=== PATIENT | female | born 1990 | race American Indian/Alaskan Native ===

== ENCOUNTER 2017-05-07 04:52 | Emergency (ER) | payer MEDICAID ==
[2017-05-07 04:59] VITALS: BP 110/64
[2017-05-07] MEDS ORDERED: Sulfamethoxazole/Trimethoprim 800-160 MG Tab PO ONE (05:10)
[2017-05-07] MEDS ORDERED: Phenazopyridine 95 MG Tab PO ONE (05:10)
--- NOTE | 2017-05-07 05:17 | EDM.PDOC ---
ED HPI GENERAL MEDICAL PROBLEM - General Chief Complaint: Genitourinary Problem Stated Complaint: POSSIBLE UTI Time Seen by Provider: 05/07/17 05:13 Source of Information: Reports: Patient History Limitations: Reports: No Limitations - History of Present Illness INITIAL COMMENTS - FREE TEXT/NARRATIVE: onset Sx last week tried drinking cranberry juice but not getting better. Left Flank Pain Score (Numeric/FACES): 6 - Related Data Allergies Allergy/AdvReac Type Severity Reaction Status Date / Time benzoyl peroxide Allergy Swelling Verified 05/07/17 05:01 Home Meds: Home Meds . 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 D/C from retained placenta. Musculoskeletal History: Reports: None Neurological History: Reports: None Psychiatric History: Reports: None Endocrine/Metabolic History: Reports: None Hematologic History: Reports: None Immunologic History: Reports: None Oncologic (Cancer) History: Reports: None Dermatologic History: Reports: None - Infectious Disease History Infectious Disease History: Reports: Chicken Pox - Past Surgical History GI Surgical History: Reports: Cholecystectomy Female Surgical History: Reports: Tubal Ligation Social & Family History - Family History Family Medical History: Noncontributory HEENT: Reports: None Cardiac: Reports: None Respiratory: Reports: None GI: Reports: None - Tobacco Use Smoking Status *Q: Current Every Day Smoker Years of Tobacco use: 10 Packs/Tins Daily: 0.5 Used Tobacco, but Quit: No Second Hand Smoke Exposure: Yes - Recreational Drug Use Recreational Drug Use: No ED ROS GENERAL - Review of Systems Review Of Systems: ROS reveals no pertinent complaints other than HPI. ED EXAM, RENAL/ - Physical Exam Exam: See Below Exam Limited By: No Limitations General Appearance: Alert, WD/WN, Mild Distress, Other ([place]) Ears: Hearing Grossly Normal Throat/Mouth: Normal Voice, No Airway Compromise Head: Atraumatic Neck: Non-Tender, Full Range of Motion Respiratory/Chest: No Respiratory Distress Cardiovascular: Regular Rate, Rhythm GI/Abdominal: Tender, Other (suprapubic). No: Distended, Guarding, Rigid, Rebound Back Exam: No: CVA Tenderness (L), CVA Tenderness (R) Neurological: Alert, Oriented, Normal Cognition, Normal Gait, No Motor/Sensory Deficits Psychiatric: Tearful Skin Exam: Warm, Dry, Normal Color Lymphatic: No Adenopathy Course - Vital Signs Last Recorded V/S: Last Vital Signs Temp 37.1 C 05/07/17 04:54 Pulse 117 H 05/07/17 04:54 Resp 18 05/07/17 04:54 BP 110/64 05/07/17 04:54 Pulse Ox 97 05/07/17 04:54 - Orders/Labs/Meds Labs: Laboratory Tests 05/07/17 05/07/17 Range/Units 04:57 04:57 Urine Color Yellow (YELLOW) Urine Appearance Slightly cloudy (CLEAR) Urine pH 5.5 (5.0-9.0) Ur Specific [place] 1.025 (1.005-1.030) Urine Protein 30 H (NEGATIVE) Urine Glucose (UA) Negative (NEGATIVE) Urine Ketones Trace H (NEGATIVE) Urine Occult Blood Small H (NEGATIVE) Urine Nitrite Positive H (NEGATIVE) Urine Bilirubin Small H (NEGATIVE) Urine Urobilinogen 0.2 (0.2-1.0) mg/dL Ur Leukocyte Esterase Small H (NEGATIVE) Urine RBC 5-10 H /HPF Urine WBC Semi-packed H (0-5/HPF) /HPF Ur Epithelial Cells Moderate H /HPF Urine Bacteria Many H (0-FEW/HPF) /HPF Urine Mucus Many H /LPF Urine Opiates Screen Negative (NEGATIVE) Ur Oxycodone Screen Negative (NEGATIVE) Urine Methadone Screen Negative (NEGATIVE) Ur Barbiturates Screen Negative (NEGATIVE) U Tricyclic Antidepress Negative (NEGATIVE) Ur Phencyclidine Scrn Negative (NEGATIVE) Ur Amphetamine Screen Negative (NEGATIVE) U Methamphetamines Scrn Negative (NEGATIVE) Urine MDMA Screen Negative (NEGATIVE) U Benzodiazepines Scrn Negative (NEGATIVE) Urine Cocaine Screen Negative (NEGATIVE) U Marijuana (THC) Screen Negative (NEGATIVE) Meds: Medications Discontinued Medications Generic Name Dose Route Start Last Admin Trade Name Freq PRN Reason Stop Dose Admin Phenazopyridine HCl 95 mg 05/07/17 05:10 Urinary Pain Relief PO 05/07/17 05:11 ONETIME ONE Trimethoprim/Sulfamethoxazole 1 tab 05/07/17 05:10 Septra Ds PO 05/07/17 05:11 ONETIME ONE Departure - Departure Time of Disposition: 05:14 Disposition: Home, Self-Care 01 Condition: Good Clinical Impression: UTI, Urinary tract infectious disease - Discharge Information Instructions: Urinary Tract Infection, Adult, [id number] Forms: ED Department Discharge Additional Instructions: 1) rest as much as possible 2) drink lots of liquids 3) take tylenol or motrin for fever or discomfort 4) follow up at clinic or recheck if feels worse rx given; bactrim DS bid x 20 pyridium 100mg tid prn x 12
== END 2017-05-07 05:18 | disposition home or self-care (01) ==
LOC: DL.ED 04:52
DX: N39.0 Urinary tract infection, site not specified (principal); J45.909 Unspecified asthma, uncomplicated; F17.210 Nicotine dependence, cigarettes, uncomplicated; Z90.49 Acquired absence of other specified parts of digestive tract; Z98.51 Tubal ligation status; Z88.8 Allergy status to other drugs, medicaments and biological substances
CPT/HCPCS: 80305; 81001; 99284; A9270

== ENCOUNTER 2017-05-08 17:14 | Emergency (ER) | payer MEDICAID ==
[2017-05-08] MEDS ORDERED: Ketorolac 30 MG/ML SDV IVPUSH ONE (17:57)
[2017-05-08] MEDS ORDERED: Sodium Chloride 0.9% 1,000 ML IV ONE (17:57)
[2017-05-08] MEDS ORDERED: Sodium Chloride 0.9% 10 ML Syringe FLUSH PRN (17:57)
[2017-05-08] MEDS ORDERED: Promethazine 25 MG Tab PO ONE (17:58)
[2017-05-08] MEDS ORDERED: cefTRIAXone 2 GM in Sodium Chloride 0.9% 100 ML IV ONE (17:59)
[2017-05-08 18:35] LABS: CHLORIDE,CL 105 mmol/L (101-111); SODIUM,NA 138 mmol/L (135-145)
[2017-05-08] MEDS ORDERED: Azithromycin 250 MG Tab PO ONE (18:45)
--- NOTE | 2017-05-08 18:49 | EDM.PDOC ---
Scribed by Reva Will 05/08/17 [id number] for Lucian Quiroz MD ED HPI GENERAL MEDICAL PROBLEM - General Chief Complaint: Genitourinary Problem Stated Complaint: POSSIBLE KIDNEY INFECTION Time Seen by Provider: 05/08/17 17:49 Source of Information: Reports: Patient, RN, RN Notes Reviewed History Limitations: Reports: No Limitations - History of Present Illness INITIAL COMMENTS - FREE TEXT/NARRATIVE: Diagnosed here 05/07/17, by Dr. Cartagena with UTI and treated with Bactrim and Pyridium. Patient returns today feeling worse. Complains of fever, chills, nausea and bilateral flank pain. First noticed UTI symptoms 1 week ago. Severity: Severe Improves with: Reports: None Worsens with: Reports: None Associated Symptoms: Reports: No Other Symptoms - Related Data Allergies Allergy/AdvReac Type Severity Reaction Status Date / Time benzoyl peroxide Allergy Swelling Verified 05/07/17 05:01 Home Meds: Home Meds . 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 D/C from retained placenta. Musculoskeletal History: Reports: None Neurological History: Reports: None Psychiatric History: Reports: None Endocrine/Metabolic History: Reports: None Hematologic History: Reports: None Immunologic History: Reports: None Oncologic (Cancer) History: Reports: None Dermatologic History: Reports: None - Infectious Disease History Infectious Disease History: Reports: Chicken Pox - Past Surgical History GI Surgical History: Reports: Cholecystectomy Female Surgical History: Reports: Section, D&C (for retained placenta), Tubal Ligation Social & Family History - Family History Family Medical History: Noncontributory HEENT: Reports: None Cardiac: Reports: None Respiratory: Reports: None GI: Reports: None - Tobacco Use Smoking Status *Q: Current Every Day Smoker Years of Tobacco use: 10 Packs/Tins Daily: 0.5 Used Tobacco, but Quit: No Second Hand Smoke Exposure: Yes - Recreational Drug Use Recreational Drug Use: No ED ROS GENERAL - Review of Systems Review Of Systems: ROS reveals no pertinent complaints other than HPI. ED EXAM, RENAL/ - Physical Exam Exam: See Below Exam Limited By: No Limitations General Appearance: Other (uncomfortable appearing.) Eye Exam: Bilateral Eye: Normal Inspection Ears: Normal External Exam, Normal Canal, Hearing Grossly Normal, Normal TMs Nose: Normal Inspection, Normal Mucosa, No Blood Throat/Mouth: Normal Inspection, Normal Lips, Normal Teeth, Normal Gums, Normal Oropharynx, Normal Voice, No Airway Compromise Head: Atraumatic, Normocephalic Neck: Normal Inspection, Supple, Non-Tender, Full Range of Motion Respiratory/Chest: No Respiratory Distress, Lungs Clear, Normal Breath Sounds, No Accessory Muscle Use, Chest Non-Tender Cardiovascular: Regular Rate, Rhythm, Tachycardia GI/Abdominal: Other (mild suprapubic tenderness to palpation, otherwise normal.) Back Exam: Other (bilateral CVA tenderness) Extremities: Normal Inspection, Normal Range of Motion, Non-Tender, Normal Capillary Refill, No Pedal Edema Neurological: Alert, Oriented, CN II-XII Intact, Normal Cognition, Normal Gait, Normal Reflexes, No Motor/Sensory Deficits Psychiatric: Normal Affect, Normal Mood Skin Exam: Warm, Dry, Intact, Normal Color, No Rash Lymphatic: No Adenopathy Course - Vital Signs Last Recorded V/S: See nurses notes for vitals. - Orders/Labs/Meds Orders: Active Orders 24 hr Category Date Time Status Peripheral IV Care [RC] . DIRECTED Care 05/08/17 17:57 Active CHLAMYDIA TRACHOMATIS/GC AMPLF Routine Lab 05/08/17 17:42 Received CULTURE BLOOD [BC] Stat Lab 05/08/17 18:05 Received CULTURE URINE [RM] Stat Lab 05/08/17 17:42 Received Sodium Chloride 0.9% [Normal Saline] 1,000 ml Med 05/08/17 17:57 Active IV .BOLUS Sodium Chloride 0.9% [Saline Flush] Med 05/08/17 17:57 Active 10 ml FLUSH ASDIRECTED PRN Peripheral IV Insertion Adult [OM.PC] Stat Oth 05/08/17 17:57 Ordered Medication Orders Sodium Chloride (Normal Saline) 1,000 mls @ 999 mls/hr IV .BOLUS ONE Stop: 05/08/17 18:57 Last Admin: 05/08/17 18:38 Dose: 999 mls/hr Sodium Chloride (Saline Flush) 10 ml FLUSH ASDIRECTED PRN PRN Reason: Keep Vein Open Last Admin: 05/08/17 18:39 Dose: 10 ml Labs: Laboratory Tests 05/08/17 05/08/17 05/08/17 Range/Units 17:42 17:42 17:42 WBC (5.0-10.0) 10^3/uL RBC (4.2-5.4) 10^6/uL Hgb (12.0-16.0) g/dL Hct (37.0-47.0) % MCV (80-100) fL MCH (27.0-34.0) pg MCHC (33.0-35.0) g/dL Plt Count (150-450) 10^3/uL Neut % (Auto) (42.2-75.2) % Lymph % (Auto) (20.5-50.1) % [place] % (Auto) (2-8) % Eos % (Auto) (1.0-3.0) % Baso % (Auto) (0.0-1.0) % Sodium (135-145) mmol/L Potassium (3.6-5.0) mmol/L Chloride (101-111) mmol/L Carbon Dioxide (21.0-31.0) mmol/L Anion Gap BUN (7-18) mg/dL Creatinine (0.6-1.3) mg/dL Est Cr Clr Drug Dosing Estimated GFR (MDRD) BUN/Creatinine Ratio Glucose (74-105) mg/dL Lactic Acid (0.5-2.2) mmol/L Calcium (8.4-10.2) mg/dl Total Bilirubin (0.2-1.0) mg/dL AST (10-42) IU/L ALT (10-60) IU/L Alkaline Phosphatase (42-121) IU/L Total Protein (6.7-8.2) g/dl Albumin (3.2-5.5) g/dl Globulin Albumin/Globulin Ratio Amylase (28-100) U/L Lipase (22-51) U/L Urine Color [place] (YELLOW) Urine Appearance Slightly cloudy (CLEAR) Urine pH 7.5 (5.0-9.0) Ur Specific [place] 1.025 (1.005-1.030) Urine Protein Trace H (NEGATIVE) Urine Glucose (UA) 100 H (NEGATIVE) Urine Ketones 40 H (NEGATIVE) Urine Occult Blood Negative (NEGATIVE) Urine Nitrite Positive H (NEGATIVE) Urine Bilirubin Large H (NEGATIVE) Urine Urobilinogen 1.0 (0.2-1.0) mg/dL Ur Leukocyte Esterase Large H (NEGATIVE) Urine RBC 10-20 H /HPF Urine WBC 5-10 H (0-5/HPF) /HPF Ur Epithelial Cells Moderate H /HPF Urine Bacteria Rare (0-FEW/HPF) /HPF Urine Mucus Many H /LPF Urine HCG, Qual Negative Urine Opiates Screen Negative (NEGATIVE) Ur Oxycodone Screen Negative (NEGATIVE) Urine Methadone Screen Negative (NEGATIVE) Ur Barbiturates Screen Negative (NEGATIVE) U Tricyclic Antidepress Negative (NEGATIVE) Ur Phencyclidine Scrn Negative (NEGATIVE) Ur Amphetamine Screen Negative (NEGATIVE) U Methamphetamines Scrn Negative (NEGATIVE) Urine MDMA Screen Negative (NEGATIVE) U Benzodiazepines Scrn Positive H (NEGATIVE) Urine Cocaine Screen Negative (NEGATIVE) U Marijuana (THC) Screen Negative (NEGATIVE) 05/08/17 05/08/17 05/08/17 Range/Units 18:05 18:05 18:05 WBC 9.0 (5.0-10.0) 10^3/uL RBC 4.40 (4.2-5.4) 10^6/uL Hgb 12.7 (12.0-16.0) g/dL Hct 36.6 L (37.0-47.0) % MCV 83.2 (80-100) fL MCH 28.9 (27.0-34.0) pg MCHC 34.7 (33.0-35.0) g/dL Plt Count 167 (150-450) 10^3/uL Neut % (Auto) 70.7 (42.2-75.2) % Lymph % (Auto) 17.2 L (20.5-50.1) % [place] % (Auto) 10.5 H (2-8) % Eos % (Auto) 1.3 (1.0-3.0) % Baso % (Auto) 0.3 (0.0-1.0) % Sodium 138 (135-145) mmol/L Potassium 3.5 L (3.6-5.0) mmol/L Chloride 105 (101-111) mmol/L Carbon Dioxide 22.0 (21.0-31.0) mmol/L Anion Gap 14.5 BUN 9 (7-18) mg/dL Creatinine 0.9 (0.6-1.3) mg/dL Est Cr Clr Drug Dosing TNP Estimated GFR (MDRD) > 60 BUN/Creatinine Ratio 10.00 Glucose 115 H (74-105) mg/dL Lactic Acid 1.0 (0.5-2.2) mmol/L Calcium 8.7 (8.4-10.2) mg/dl Total Bilirubin 0.4 (0.2-1.0) mg/dL AST 28 (10-42) IU/L ALT 33 (10-60) IU/L Alkaline Phosphatase 89 (42-121) IU/L Total Protein 7.4 (6.7-8.2) g/dl Albumin 3.6 (3.2-5.5) g/dl Globulin 3.8 Albumin/Globulin Ratio 0.95 Amylase 33 (28-100) U/L Lipase 15 L (22-51) U/L Urine Color (YELLOW) Urine Appearance (CLEAR) Urine pH (5.0-9.0) Ur Specific [place] (1.005-1.030) Urine Protein (NEGATIVE) Urine Glucose (UA) (NEGATIVE) Urine Ketones (NEGATIVE) Urine Occult Blood (NEGATIVE) Urine Nitrite (NEGATIVE) Urine Bilirubin (NEGATIVE) Urine Urobilinogen (0.2-1.0) mg/dL Ur Leukocyte Esterase (NEGATIVE) Urine RBC /HPF Urine WBC (0-5/HPF) /HPF Ur Epithelial Cells /HPF Urine Bacteria (0-FEW/HPF) /HPF Urine Mucus /LPF Urine HCG, Qual Urine Opiates Screen (NEGATIVE) Ur Oxycodone Screen (NEGATIVE) Urine Methadone Screen (NEGATIVE) Ur Barbiturates Screen (NEGATIVE) U Tricyclic Antidepress (NEGATIVE) Ur Phencyclidine Scrn (NEGATIVE) Ur Amphetamine Screen (NEGATIVE) U Methamphetamines Scrn (NEGATIVE) Urine MDMA Screen (NEGATIVE) U Benzodiazepines Scrn (NEGATIVE) Urine Cocaine Screen (NEGATIVE) U Marijuana (THC) Screen (NEGATIVE) Meds: Medications Generic Name Dose Route Start Last Admin Trade Name Freq PRN Reason Stop Dose Admin Sodium Chloride 1,000 mls @ 999 mls/hr 05/08/17 17:57 05/08/17 18:38 Normal Saline IV 05/08/17 18:57 999 mls/hr .BOLUS ONE Administration Sodium Chloride 10 ml 05/08/17 17:57 05/08/17 18:39 Saline Flush FLUSH 10 ml ASDIRECTED PRN Administration Keep Vein Open Discontinued Medications Generic Name Dose Route Start Last Admin Trade Name Viralq PRN Reason Stop Dose Admin Azithromycin 1,000 mg 05/08/17 18:45 Zithromax PO 05/08/17 18:46 ONETIME ONE Ceftriaxone Sodium 2 gm/ 100 mls @ 200 mls/hr 05/08/17 17:59 05/08/17 18:39 Sodium Chloride IV 05/08/17 18:28 200 mls/hr ONETIME ONE Administration Ketorolac Tromethamine 30 mg 05/08/17 17:57 05/08/17 18:43 Toradol IVPUSH 05/08/17 17:58 30 mg ONETIME ONE Administration Promethazine HCl 25 mg 05/08/17 17:58 05/08/17 18:38 Phenergan PO 05/08/17 17:59 25 mg ONETIME ONE Administration Departure - Departure Time of Disposition: 18:46 Disposition: Home, Self-Care 01 Condition: Fair Clinical Impression: Pyelonephritis - Discharge Information Instructions: Pyelonephritis, Adult, [id number] Forms: ED Department Discharge Additional Instructions: RX: Phenergan 25mg *do not drive after taking this medication. RX: Cipro 500mg. Drink plenty of water. Follow up in clinic in 3 days for urine recheck. - My Orders Last 24 Hours: My Active Orders 05/08/17 17:42 CHLAMYDIA TRACHOMATIS/GC AMPLF Routine CULTURE URINE [RM] Stat 05/08/17 17:57 Peripheral IV Care [RC] . DIRECTED Sodium Chloride 0.9% [Normal Saline] 1,000 ml IV .BOLUS Sodium Chloride 0.9% [Saline Flush] 10 ml FLUSH ASDIRECTED PRN Peripheral IV Insertion Adult [OM.PC] Stat 05/08/17 18:05 CULTURE BLOOD [BC] Stat - Assessment/Plan Last 24 Hours: My Active Orders 05/08/17 17:42 CHLAMYDIA TRACHOMATIS/GC AMPLF Routine CULTURE URINE [RM] Stat 05/08/17 17:57 Peripheral IV Care [RC] . DIRECTED Sodium Chloride 0.9% [Normal Saline] 1,000 ml IV .BOLUS Sodium Chloride 0.9% [Saline Flush] 10 ml FLUSH ASDIRECTED PRN Peripheral IV Insertion Adult [OM.PC] Stat 05/08/17 18:05 CULTURE BLOOD [BC] Stat I have read and agree with the documentation that has been completed regarding this visit. By signing this record, I attest that the documentation was completed in my physical presence and is an accurate record of the encounter.
[2017-05-08 18:57] VITALS: BP 114/68
== END 2017-05-08 20:10 | disposition home or self-care (01) ==
LOC: DL.ED 17:14
DX: N12 Tubulo-interstitial nephritis, not specified as acute or chronic (principal); F17.210 Nicotine dependence, cigarettes, uncomplicated
CPT/HCPCS: 36415; 80053; 80305; 81001; 81025; 82150; 83605; 83690; 85025; 87040; 87086; 87491; 87591; 96361; 96365; 96375; 99284; A9270; J0696; J1885; J7030; J7050

== ENCOUNTER 2017-10-11 20:35 | Emergency (ER) | payer MEDICAID ==
[2017-10-11 20:40] VITALS: BP 118/73
[2017-10-11] MEDS ORDERED: Sulfamethoxazole/Trimethoprim 800-160 MG Tab PO ONE (20:55)
--- NOTE | 2017-10-11 20:58 | EDM.PDOC ---
ED HPI GENERAL MEDICAL PROBLEM - General Chief Complaint: Skin Complaint Stated Complaint: STAFF INFECTION Time Seen by Provider: 10/11/17 20:50 Source of Information: Reports: Patient History Limitations: Reports: No Limitations - History of Present Illness INITIAL COMMENTS - FREE TEXT/NARRATIVE: This 27 yo female patient reports to the ED with a red, swollen area on her right buttocks. The patient reports her was recently seen in the ED for a Staph infection and is currently on antibiotics. Onset: Today Duration: Constant, Getting Worse Location: Reports: Other (right buttocks) Quality: Reports: Ache, Sharp Severity: Moderate Improves with: Reports: None Worsens with: Reports: None Associated Symptoms: Reports: No Other Symptoms Right Lower Back Pain Score (Numeric/FACES): 6 - Related Data Allergies Allergy/AdvReac Type Severity Reaction Status Date / Time benzoyl peroxide Allergy Swelling Verified 10/11/17 20:48 Home Meds: Home Meds . 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 D/C from retained placenta. Musculoskeletal History: Reports: None Neurological History: Reports: None Psychiatric History: Reports: None Endocrine/Metabolic History: Reports: None Hematologic History: Reports: None Immunologic History: Reports: None Oncologic (Cancer) History: Reports: None Dermatologic History: Reports: None - Infectious Disease History Infectious Disease History: Reports: Chicken Pox - Past Surgical History GI Surgical History: Reports: Cholecystectomy Female Surgical History: Reports: Section, D&C, Tubal Ligation Social & Family History - Family History Family Medical History: Noncontributory HEENT: Reports: None Cardiac: Reports: None Respiratory: Reports: None GI: Reports: None - Tobacco Use Smoking Status *Q: Current Every Day Smoker Years of Tobacco use: 13 Packs/Tins Daily: 1 Used Tobacco, but Quit: No Second Hand Smoke Exposure: Yes - Caffeine Use Caffeine Use: Reports: Coffee - Recreational Drug Use Recreational Drug Use: No ED ROS GENERAL - Review of Systems Review Of Systems: ROS reveals no pertinent complaints other than HPI. ED EXAM, SKIN/RASH Exam: See Below Exam Limited By: No Limitations General Appearance: Alert, WD/WN, Moderate Distress, Thin Eye Exam: Bilateral Eye: EOMI, Normal Inspection, PERRL Ears: Normal External Exam, Normal Canal, Hearing Grossly Normal, Normal TMs Nose: Normal Inspection, Normal Mucosa, No Blood Throat/Mouth: Normal Inspection, Normal Lips, Normal Teeth, Normal Gums, Normal Oropharynx, Normal Voice, No Airway Compromise Head: Atraumatic, Normocephalic Neck: Normal Inspection, Supple, Non-Tender, Full Range of Motion Respiratory/Chest: No Respiratory Distress, Lungs Clear, Normal Breath Sounds, No Accessory Muscle Use, Chest Non-Tender Cardiovascular: Normal Peripheral Pulses, Regular Rate, Rhythm, No Edema, No Gallop, No JVD, No Murmur, No Rub GI/Abdominal: Normal Bowel Sounds, Soft, Non-Tender, No Organomegaly, No Distention, No Abnormal Bruit, No Mass (Female) Exam: Deferred Rectal (Female) Exam: Deferred Back Exam: Normal Inspection, Full Range of Motion, NT Extremities: Normal Inspection, Normal Range of Motion, Non-Tender, No Pedal Edema, Normal Capillary Refill Neurological: Alert, Oriented, CN II-XII Intact, Normal Cognition, Normal Gait, Normal Reflexes, No Motor/Sensory Deficits Psychiatric: Normal Affect, Normal Mood Skin: Warm, Dry, Erythema (right buttocks) Location, Skin: Lower Extremity, Right (buttocks) Characteristics: Erythematous Associated features: Warmth, Tenderness. No: Induration Lymphatic: No Adenopathy Course - Vital Signs Last Recorded V/S: Last Vital Signs Temp 36.7 C 10/11/17 20:39 Pulse 80 10/11/17 20:39 Resp 16 10/11/17 20:39 BP 118/73 10/11/17 20:39 Pulse Ox 100 10/11/17 20:39 - Orders/Labs/Meds Meds: Medications Discontinued Medications Generic Name Dose Route Start Last Admin Trade Name Freq PRN Reason Stop Dose Admin Trimethoprim/Sulfamethoxazole 1 tab 10/11/17 20:55 Septra Ds PO 10/11/17 20:56 ONETIME ONE Departure - Departure Time of Disposition: 21:00 Disposition: Home, Self-Care 01 Condition: Fair Clinical Impression: Cellulitis Qualifiers: Site of cellulitis: buttock Qualified Code(s): L03.317 - Cellulitis of buttock - Discharge Information Instructions: Cellulitis, Adult, [id number] Forms: ED Department Discharge Care Plan Goals: The patient was advised of the examination results during the visit. The patient was given an oral dose of Bactrim DS while in the ED. The patient was discharged with a script for Bactrim DS to take 1 by mouth 2 times per day for 14 days. If the patient has any additional symptoms or further concerns, the patient should follow-up with her primary care facility or return to the emergency department.
== END 2017-10-11 21:05 | disposition home or self-care (01) ==
LOC: DL.ED 20:35
DX: L03.317 Cellulitis of buttock (principal); F17.210 Nicotine dependence, cigarettes, uncomplicated
CPT/HCPCS: 99282; A9270

== ENCOUNTER 2017-10-15 16:32 | Emergency (ER) | payer MEDICAID ==
[2017-10-15 16:48] VITALS: BP 107/60
[2017-10-15] MEDS ORDERED: Mupirocin Oint 22 GM Tube TOP ONE (17:40)
[2017-10-15] MEDS ORDERED: Doxycycline 100 MG Cap PO ONE (17:40)
--- NOTE | 2017-10-15 17:43 | EDM.PDOC ---
ED HPI GENERAL MEDICAL PROBLEM - General Chief Complaint: Skin Complaint Stated Complaint: STAPH INFECTION, [id number] Time Seen by Provider: 10/15/17 17:30 Source of Information: Reports: Patient, Family, RN, RN Notes Reviewed History Limitations: Reports: No Limitations - History of Present Illness INITIAL COMMENTS - FREE TEXT/NARRATIVE: Pt presents to the ER with c/o boil on her right buttock. She states he had a wound that was I&D and states he had a "staph infection". She states she now has a boil on her buttock and was seen in the ER 4 days ago and prescribed antibiotics. She states she feel it has not gotten better and has actually gotten worse. She rates the pain 6/10 when she sits on it and 4/10 when she is not sitting directly on it. She states she has had a fever and chills for the past 2 days. Onset: Gradual Location: Reports: Other (right buttock) Quality: Reports: Burning, Stabbing, Throbbing Severity: Moderate Improves with: Reports: None Worsens with: Reports: None Associated Symptoms: Reports: Fever/Chills Sacral Pain Score (Numeric/FACES): 6 - Related Data Allergies Allergy/AdvReac Type Severity Reaction Status Date / Time benzoyl peroxide Allergy Swelling Verified 10/11/17 20:48 Home Meds: Home Meds Sulfamethoxazole/Trimethoprim [Bactrim 400-80 MG] 1 tab PO QID 10/15/17 [History ] Past Medical History HEENT History: Reports: None Cardiovascular History: Reports: None Respiratory History: Reports: Asthma Gastrointestinal History: Reports: Cholelithiasis Genitourinary History: Reports: None 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 D/C from retained placenta. Musculoskeletal History: Reports: None Neurological History: Reports: None Psychiatric History: Reports: None Endocrine/Metabolic History: Reports: None Hematologic History: Reports: None Immunologic History: Reports: None Oncologic (Cancer) History: Reports: None Dermatologic History: Reports: None - Infectious Disease History Infectious Disease History: Reports: Chicken Pox - Past Surgical History GI Surgical History: Reports: Cholecystectomy Female Surgical History: Reports: Section, D&C, Tubal Ligation Social & Family History - Family History Family Medical History: Noncontributory HEENT: Reports: None Cardiac: Reports: None Respiratory: Reports: None GI: Reports: None - Tobacco Use Smoking Status *Q: Current Every Day Smoker Years of Tobacco use: 13 Packs/Tins Daily: 1 Used Tobacco, but Quit: No Second Hand Smoke Exposure: Yes - Caffeine Use Caffeine Use: Reports: Coffee, Energy Drinks - Recreational Drug Use Recreational Drug Use: No ED ROS GENERAL - Review of Systems Review Of Systems: ROS reveals no pertinent complaints other than HPI. ED EXAM, SKIN/RASH Exam: See Below Exam Limited By: No Limitations General Appearance: Alert, WD/WN, Mild Distress Eye Exam: Bilateral Eye: EOMI, Normal Inspection Ears: Normal External Exam, Hearing Grossly Normal Nose: Normal Inspection Throat/Mouth: Normal Inspection, Normal Voice, No Airway Compromise Head: Atraumatic, Normocephalic Neck: Normal Inspection, Supple, Non-Tender, Full Range of Motion Respiratory/Chest: No Respiratory Distress, Lungs Clear, Normal Breath Sounds, No Accessory Muscle Use, Chest Non-Tender Cardiovascular: Normal Peripheral Pulses, Regular Rate, Rhythm, No Edema, No Gallop, No JVD, No Murmur, No Rub Peripheral Pulses: 2+: Radial (L), Radial (R) GI/Abdominal: Normal Bowel Sounds, Soft, Non-Tender, No Organomegaly, No Distention, No Abnormal Bruit, No Mass (Female) Exam: Deferred Rectal (Female) Exam: Deferred Back Exam: Normal Inspection, Full Range of Motion, NT Extremities: Normal Inspection, Normal Range of Motion, Non-Tender, No Pedal Edema, Normal Capillary Refill Neurological: Alert, Oriented, CN II-XII Intact, Normal Cognition, Normal Gait, Normal Reflexes, No Motor/Sensory Deficits Psychiatric: Normal Affect, Normal Mood Skin: Warm, Dry, Normal Color, Wound/Incision (1cm x 1cm abscess on the right buttock, erythematous, inderated, warm) Location, Skin: Other (right buttock) Characteristics: Erythematous Associated features: Warmth, Induration, Inflammation Lymphatic: No Adenopathy ED SKIN PROCEDURES - I&D Site: right buttock Skin Prep: Isopropyl Alcohol (Alcohol) Local Anesthesia: Lidocaine: 1% Plain Local Anesthetic Volume: 5cc Area Incised With: 11 Blade, Needle Drainage: Purulent, Bloody, Moderate Amount Probed to Break Up Loculations: Yes Packed With: 1/4 in. Iodoform Sterile Dressing: Adhesive Dressing Complications: No Course - Vital Signs Last Recorded V/S: Last Vital Signs Temp 98.2 F 10/15/17 16:47 Pulse 89 10/15/17 16:47 Resp 16 10/15/17 16:47 BP 107/60 10/15/17 16:47 Pulse Ox 100 10/15/17 16:47 - Orders/Labs/Meds Orders: Active Orders 24 hr Category Date Time Status CULTURE WOUND [RM] Stat Lab 10/15/17 17:48 Received Meds: Medications Discontinued Medications Generic Name Dose Route Start Last Admin Trade Name Selena PRN Reason Stop Dose Admin Doxycycline Hyclate 100 mg 10/15/17 17:40 10/15/17 17:55 Vibramycin PO 10/15/17 17:41 100 mg ONETIME ONE Administration Hydromorphone HCl 0.5 mg 10/15/17 18:08 10/15/17 18:14 Dilaudid IM 10/15/17 18:09 0.5 mg ONETIME ONE Administration Lidocaine HCl 30 ml 10/15/17 17:53 10/15/17 17:57 Xylocaine-Mpf 1% INJECT 10/15/17 17:54 30 ml ONETIME ONE Administration Mupirocin 1 gm 10/15/17 17:40 10/15/17 17:55 Bactroban Oint TOP 10/15/17 17:41 1 cm ONETIME ONE Administration Departure - Departure Time of Disposition: 18:50 Disposition: Home, Self-Care 01 Condition: Fair Clinical Impression: Abscess - Discharge Information Instructions: Abscess, MRSA Infection, Adult Referrals: Wisam Underwood MD [Primary Care Provider] - Forms: ED Department Discharge Additional Instructions: RX: Doxycycline Use Bactroban on the wound, under fingernails, in the nostrils. Follow up with your primary care facility next week. - My Orders Last 24 Hours: My Active Orders 10/15/17 17:48 CULTURE WOUND [RM] Stat - Assessment/Plan Last 24 Hours: My Active Orders 10/15/17 17:48 CULTURE WOUND [RM] Stat
[2017-10-15] MEDS ORDERED: Lidocaine 1% 30 ML SDV INJECT ONE (17:53)
[2017-10-15] MEDS ORDERED: HYDROmorphone 1 MG/ML Syringe IM ONE (18:08)
== END 2017-10-15 18:52 | disposition home or self-care (01) ==
LOC: DL.ED 16:32
DX: L02.31 Cutaneous abscess of buttock (principal); F17.210 Nicotine dependence, cigarettes, uncomplicated; Z88.8 Allergy status to other drugs, medicaments and biological substances
CPT/HCPCS: 10061; 87070; 87077; 87186; 96372; 99283; A9270; J1170

== ENCOUNTER 2018-01-01 12:58 | Emergency (ER) | payer MEDICAID ==
[2018-01-01 13:14] VITALS: BP 114/67
--- NOTE | 2018-01-02 14:05 | EDM.PDOC ---
Scribed by Reva Will 01/01/18 1518 for Angelica Lazar NP ED HPI GENERAL MEDICAL PROBLEM - General Chief Complaint: Skin Complaint Stated Complaint: leg infection [id number] Time Seen by Provider: 01/01/18 15:09 Source of Information: Reports: Patient, RN, RN Notes Reviewed History Limitations: Reports: No Limitations - History of Present Illness INITIAL COMMENTS - FREE TEXT/NARRATIVE: Patient presents to ER with complaint of infection to right lower leg/right garcía. She has had no injury that she can recall. The last one on the buttock 2- 3 months ago that was treated with antibiotic. She denies fever or chills. Duration: Constant Location: Reports: Lower Extremity, Right Quality: Reports: Ache Severity: Mild Improves with: Reports: None Worsens with: Reports: None Associated Symptoms: Reports: No Other Symptoms Right Leg Pain Score (Numeric/FACES): 3 - Related Data Allergies Allergy/AdvReac Type Severity Reaction Status Date / Time benzoyl peroxide Allergy Swelling Verified 10/11/17 20:48 Home Meds: Home Meds Albuterol Sulfate [Ventolin Hfa] 2 puff INH ASDIRECTED PRN 01/01/18 [History] Past Medical History HEENT History: Reports: None Cardiovascular History: Reports: None Respiratory History: Reports: Asthma Gastrointestinal History: Reports: Cholelithiasis Genitourinary History: Reports: None 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 D/C from retained placenta. Musculoskeletal History: Reports: None Neurological History: Reports: None Psychiatric History: Reports: None Endocrine/Metabolic History: Reports: None Hematologic History: Reports: None Immunologic History: Reports: None Oncologic (Cancer) History: Reports: None Dermatologic History: Reports: None - Infectious Disease History Infectious Disease History: Reports: Chicken Pox - Past Surgical History GI Surgical History: Reports: Cholecystectomy Female Surgical History: Reports: Section, D&C, Tubal Ligation Social & Family History - Family History Family Medical History: Noncontributory HEENT: Reports: None Cardiac: Reports: None Respiratory: Reports: None GI: Reports: None - Tobacco Use Smoking Status *Q: Current Every Day Smoker Years of Tobacco use: 13 Packs/Tins Daily: 1 Used Tobacco, but Quit: No Second Hand Smoke Exposure: Yes - Caffeine Use Caffeine Use: Reports: Coffee, Energy Drinks - Recreational Drug Use Recreational Drug Use: No ED ROS GENERAL - Review of Systems Review Of Systems: ROS reveals no pertinent complaints other than HPI. ED EXAM, SKIN/RASH Exam: See Below Exam Limited By: No Limitations General Appearance: Alert, WD/WN, No Apparent Distress Eye Exam: Bilateral Eye: Normal Inspection Ears: Normal External Exam, Normal Canal, Hearing Grossly Normal, Normal TMs Nose: Normal Inspection, Normal Mucosa, No Blood Throat/Mouth: Normal Inspection, Normal Lips, Normal Teeth, Normal Gums, Normal Oropharynx, Normal Voice, No Airway Compromise Head: Atraumatic, Normocephalic Neck: Normal Inspection, Supple, Non-Tender, Full Range of Motion Respiratory/Chest: No Respiratory Distress, Lungs Clear, Normal Breath Sounds, No Accessory Muscle Use, Chest Non-Tender Cardiovascular: Normal Peripheral Pulses, Regular Rate, Rhythm, No Edema, No Gallop, No JVD, No Murmur, No Rub GI/Abdominal: Normal Bowel Sounds, Soft, Non-Tender, No Organomegaly, No Distention, No Abnormal Bruit, No Mass (Female) Exam: Deferred Rectal (Female) Exam: Deferred Back Exam: Normal Inspection, Full Range of Motion, NT Extremities: Normal Inspection, Normal Range of Motion, Non-Tender, No Pedal Edema, Normal Capillary Refill Neurological: Alert, Oriented, CN II-XII Intact, Normal Cognition, Normal Gait, Normal Reflexes, No Motor/Sensory Deficits Skin: Other (Right garcía red/arm with a central pustule.) Lymphatic: No Adenopathy Course - Vital Signs Last Recorded V/S: Last Vital Signs Temp 98.2 F 01/01/18 13:02 Pulse 98 01/01/18 13:02 Resp 16 01/01/18 13:02 BP 114/67 01/01/18 13:02 Pulse Ox 98 01/01/18 13:02 - Orders/Labs/Meds Orders: Active Orders 24 hr Category Date Time Status CULTURE WOUND [RM] Stat Lab 01/01/18 15:10 Results Departure - Departure Time of Disposition: 15:15 Disposition: Home, Self-Care 01 Condition: Fair Clinical Impression: Abscess - Discharge Information Instructions: Skin Abscess, [id number], Community-Associated MRSA Referrals: Wisam Underwood MD [Primary Care Provider] - Forms: ED Department Discharge Additional Instructions: RX: Bactroban, Doxycycline Use Bactroban on the site tid, as well as in the nostrils Follow up with your primary care facility this week. If any worsening return to the ER - My Orders Last 24 Hours: My Active Orders 01/01/18 15:10 CULTURE WOUND [RM] Stat - Assessment/Plan Last 24 Hours: My Active Orders 01/01/18 15:10 CULTURE WOUND [RM] Stat I have read and agree with the documentation that has been completed regarding this visit. By signing this record, I attest that the documentation was completed in my physical presence and is an accurate record of the encounter.
== END 2018-01-01 15:29 | disposition home or self-care (01) ==
LOC: DL.ED 12:58
DX: L02.415 Cutaneous abscess of right lower limb (principal); J45.909 Unspecified asthma, uncomplicated; F17.210 Nicotine dependence, cigarettes, uncomplicated; Z88.8 Allergy status to other drugs, medicaments and biological substances
CPT/HCPCS: 87070; 87077; 87186; 99283

== ENCOUNTER 2019-12-31 16:54 | Emergency (ER) | payer MEDICAID ==
[2019-12-31 17:32] VITALS: BP 112/77; PULSE 105
--- NOTE | 2019-12-31 18:02 | EDM.PDOC ---
<Akin Penn - Last Filed: 12/31/19 18:51> ED HPI GENERAL MEDICAL PROBLEM - General Chief Complaint: Laceration Stated Complaint: LACERATION ON FINGER Time Seen by Provider: 12/31/19 17:56 Source of Information: Reports: Patient, RN, RN Notes Reviewed History Limitations: Reports: No Limitations - History of Present Illness INITIAL COMMENTS - FREE TEXT/NARRATIVE: Patient presents to the ER for a laceration to her LEFT ring finger while she was cutting a cord with a [place] knife. Laceration is 2.5 cm long. Pt states pain 7/10. Bleeding has stopped before arrival to the ER with pressure bandage applied by patient. Patient denies LOC or any known bleeding disorders. Onset: Today Duration: Constant Location: Reports: Upper Extremity, Left (4th digit) Quality: Reports: Throbbing Severity: Mild Improves with: Reports: None Worsens with: Reports: None Associated Symptoms: Reports: No Other Symptoms Left Finger-Ring Pain Score (Numeric/FACES): 7 - Related Data Allergies Allergy/AdvReac Type Severity Reaction Status Date / Time benzoyl peroxide Allergy Swelling Verified 12/31/19 17:34 Home Meds: Home Meds . 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 D/C from retained placenta. Musculoskeletal History: Reports: None Neurological History: Reports: None Psychiatric History: Reports: None Endocrine/Metabolic History: Reports: None Hematologic History: Reports: None Immunologic History: Reports: None Oncologic (Cancer) History: Reports: None Dermatologic History: Reports: None - Infectious Disease History Infectious Disease History: Reports: Chicken Pox - Past Surgical History Head Surgeries/Procedures: Reports: None GI Surgical History: Reports: Cholecystectomy Female Surgical History: Reports: Section, D&C, Tubal Ligation Social & Family History - Family History Family Medical History: Noncontributory HEENT: Reports: None Cardiac: Reports: None Respiratory: Reports: None GI: Reports: None - Tobacco Use Smoking Status *Q: Current Every Day Smoker Years of Tobacco use: 15 Packs/Tins Daily: 1 - Caffeine Use Caffeine Use: Reports: Coffee - Recreational Drug Use Recreational Drug Use: No ED ROS GENERAL - Review of Systems Review Of Systems: Comprehensive ROS is negative, except as noted in HPI. ED EXAM, SKIN/RASH Exam: See Below Exam Limited By: No Limitations General Appearance: Alert, WD/WN, No Apparent Distress Respiratory/Chest: No Respiratory Distress, Lungs Clear, Normal Breath Sounds, No Accessory Muscle Use, Chest Non-Tender Cardiovascular: Normal Peripheral Pulses, Regular Rate, Rhythm, No Edema, No Gallop, No JVD, No Murmur, No Rub Extremities: Normal Inspection, Normal Range of Motion, Non-Tender, No Pedal Edema, Normal Capillary Refill Skin: Warm, Dry, Normal Color, Wound/Incision (2.5 cm laceration to palmar surface of 4th digit of left hand) Location, Skin: Upper Extremity, Left Characteristics: Linear Associated features: Tenderness. No: Warmth, Swelling, Inflammation ED SKIN PROCEDURES - Laceration/Wound Repair Left Digit - 4th (Ring) Appearance: Subcutaneous Distal NVT: Neuro & Vascular Intact, No Tendon Injury Anesthetic Type: Local Local Anesthesia - Lidocaine (Xylocaine): 1% Plain Local Anesthetic Volume: 2cc Skin Prep: Chlorhexidine (Hibiciens) Exploration/Debridement/Repair: Wound Explored, No Foreign Material Found, Wound Margins Revised Closed with: Sutures Lac/Wound length In cm: 2.5 Suture Size: 3-0 Suture Type: Prolene, Interrupted, Simple Sterile Dressing Applied: Nurse Tetanus Status Addressed: Yes Complications: No Course - Vital Signs Last Recorded V/S: Last Vital Signs Temp 37.1 C 12/31/19 17:28 Pulse 105 H 12/31/19 17:28 Resp 18 12/31/19 17:28 BP 112/77 12/31/19 17:28 Pulse Ox 97 12/31/19 17:28 - Orders/Labs/Meds Orders: Active Orders 24 hr Category Date Time Status Vaccines to be Administered [RC] PER UNIT ROUTINE Care 12/31/19 18:51 Active Meds: Medications Discontinued Medications Generic Name Dose Route Start Last Admin Trade Name Freq PRN Reason Stop Dose Admin Bacitracin 1 dose 12/31/19 18:12 12/31/19 18:31 Bacitracin Oint 1 Gm TOP 12/31/19 18:13 1 dose ONETIME ONE Administration Diphtheria/Tetanus/Acell Pertussis 0.5 ml 12/31/19 18:51 12/31/19 19:04 Adacel IM 12/31/19 18:52 0.5 ml .ONCE ONE Administration Lidocaine HCl 30 ml 12/31/19 18:12 12/31/19 18:31 Xylocaine-Mpf 1% INJECT 12/31/19 18:13 30 ml ONETIME ONE Administration Departure - Departure Time of Disposition: 19:00 Disposition: Home, Self-Care 01 Condition: Good Clinical Impression: Laceration - Discharge Information *PRESCRIPTION DRUG MONITORING PROGRAM REVIEWED*: Not Applicable *COPY OF PRESCRIPTION DRUG MONITORING REPORT IN PATIENT GRADY: Not Applicable Instructions: Laceration Care, Adult, [id number] Forms: ED Department Discharge Additional Instructions: The lidocaine will wear off after a couple hours so use ibuprofen and tylenol for pain and inflammation. Keep wound area clean, you can shower and bathe as usual but avoid soaking the area for long periods of time. Sutures should be removed at the clinic after 10-14 days. If any signs of infection arise such as increased warmth, redness or fever, return to ER or clinic for further evaluation. Sepsis Event Note - Evaluation Sepsis Screening Result: No Definite Risk - Focused Exam Vital Signs: Vital Signs Temp Pulse Resp BP Pulse Ox 12/31/19 17:28 37.1 C 105 H 18 112/77 97 Date Exam was Performed: 12/31/19 Time Exam was Performed: 18:51 - My Orders Last 24 Hours: My Active Orders 12/31/19 18:51 Vaccines to be Administered [RC] PER UNIT ROUTINE - Assessment/Plan Last 24 Hours: My Active Orders 12/31/19 18:51 Vaccines to be Administered [RC] PER UNIT ROUTINE <Julian Goodman - Last Filed: 12/31/19 19:07> Course - Re-Assessments/Exams Free Text/Narrative Re-Assessment/Exam: 12/31/19 19:07 I have examined the patient. I have discussed findings and treatment plan with the PA student. I agree with the assessment and plan in the following students note. Sepsis Event Note - Focused Exam Date Exam was Performed: 12/31/19 Time Exam was Performed: 19:07
[2019-12-31] MEDS ORDERED: Lidocaine 1% 30 ML SDV INJECT ONE (18:12)
[2019-12-31] MEDS ORDERED: Bacitracin Oint 1 GM U/D Packet TOP ONE (18:12)
[2019-12-31] MEDS ORDERED: Diphtheria,Pertussis(Acell),Tetanus Vaccine 0.5 ML SDV IM ONE (18:51)
== END 2019-12-31 19:14 | disposition home or self-care (01) ==
LOC: DL.ED 16:54
DX: S61.215A Laceration without foreign body of left ring finger without damage to nail, initial encounter (principal); Z23 Encounter for immunization; F17.210 Nicotine dependence, cigarettes, uncomplicated; Z88.8 Allergy status to other drugs, medicaments and biological substances; W26.0XXA Contact with knife, initial encounter
CPT/HCPCS: 12001; 90471; 90715; 99282; J2001

== ENCOUNTER 2020-07-11 09:47 | Emergency (ER) | payer MEDICAID ==
--- NOTE | 2020-07-11 10:12 | EDM.PDOC ---
ED HPI GENERAL MEDICAL PROBLEM - General Chief Complaint: ENT Problem Stated Complaint: Left external ear pain Time Seen by Provider: 07/11/20 10:12 Source of Information: Reports: Patient, RN, RN Notes Reviewed History Limitations: Reports: No Limitations - History of Present Illness INITIAL COMMENTS - FREE TEXT/NARRATIVE: Kavita comes into the ED with an infected left tragus that she pierced over a month ago, but developed a pimple recently which she popped, now it is swollen and red. Denies purulent drainage or fever. Onset: Gradual Duration: Day(s): (3-4), Getting Worse Location: Reports: Other (Left ear) Quality: Reports: Ache Severity: Moderate Improves with: Reports: None Worsens with: Reports: None Associated Symptoms: Reports: No Other Symptoms - Related Data Allergies Allergy/AdvReac Type Severity Reaction Status Date / Time benzoyl peroxide Allergy Swelling Verified 12/31/19 17:34 Home Meds: Home Meds . 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 D/C from retained placenta. Musculoskeletal History: Reports: None Neurological History: Reports: None Psychiatric History: Reports: None Endocrine/Metabolic History: Reports: None Hematologic History: Reports: None Immunologic History: Reports: None Oncologic (Cancer) History: Reports: None Dermatologic History: Reports: None - Infectious Disease History Infectious Disease History: Reports: Chicken Pox - Past Surgical History Head Surgeries/Procedures: Reports: None GI Surgical History: Reports: Cholecystectomy Female Surgical History: Reports: Section, D&C, Tubal Ligation Social & Family History - Family History Family Medical History: Noncontributory HEENT: Reports: None Cardiac: Reports: None Respiratory: Reports: None GI: Reports: None - Caffeine Use Caffeine Use: Reports: Coffee - Living Situation & Occupation Living situation: Reports: with Family ED ROS ENT - Review of Systems Review Of Systems: Comprehensive ROS is negative, except as noted in HPI. ED EXAM, ENT - Physical Exam Exam: See Below Exam Limited By: No Limitations General Appearance: Alert, WD/WN, No Apparent Distress Ears: Normal Canal, Hearing Grossly Normal, Normal TMs, Auricular Tenderness (Left tragus swollen, tender with a bruise from being recently squeezed, and mild erythema.). No: Canal Discharge Nose: Normal Inspection Neck: Non-Tender, Full Range of Motion. No: Lymphadenopathy (L), Lymphadenopathy (R) Respiratory/Chest: No Respiratory Distress Neurological: Alert, No Motor/Sensory Deficits Psychiatric: Normal Mood Skin: Warm, Dry, Intact Course - Vital Signs Last Recorded V/S: Last Vital Signs Temp 98.3 F 07/11/20 10:14 Pulse 95 07/11/20 10:14 Resp 18 07/11/20 10:14 BP 122/80 07/11/20 10:14 Pulse Ox 99 07/11/20 10:14 Departure - Departure Time of Disposition: 10:18 Disposition: Home, Self-Care 01 Condition: Good Clinical Impression: Infection of left external ear - Discharge Information *PRESCRIPTION DRUG MONITORING PROGRAM REVIEWED*: Not Applicable *COPY OF PRESCRIPTION DRUG MONITORING REPORT IN PATIENT GRADY: Not Applicable Instructions: Cellulitis, Adult, [id number] Referrals: Wisam Underwood MD [Primary Care Provider] - Forms: ED Department Discharge Additional Instructions: Rx: Clindamycin 300mg Rx: Bactroban (Mupirocin) Ointment 2% Follow up in clinic if not starting to improve in 3 to 4 days. Sepsis Event Note (ED) - Focused Exam Vital Signs: Vital Signs Temp Pulse Resp BP Pulse Ox 07/11/20 10:14 98.3 F 95 18 122/80 99
[2020-07-11 10:17] VITALS: BP 122/80; PULSE 95
== END 2020-07-11 10:30 | disposition home or self-care (01) ==
LOC: DL.ED 09:47
DX: H60.392 Other infective otitis externa, left ear (principal); J45.909 Unspecified asthma, uncomplicated; Z88.8 Allergy status to other drugs, medicaments and biological substances; Z98.890 Other specified postprocedural states
CPT/HCPCS: 99282

== ENCOUNTER 2020-08-20 11:46 | Emergency (ER) | payer MEDICAID ==
--- NOTE | 2020-08-20 14:30 | EDM.PDOC ---
ED HPI GENERAL MEDICAL PROBLEM - General Chief Complaint: ENT Problem Stated Complaint: RUNNY NOSE COUGH ABCES TOOTH Time Seen by Provider: 08/20/20 14:10 Source of Information: Reports: Patient, RN, RN Notes Reviewed History Limitations: Reports: No Limitations - History of Present Illness INITIAL COMMENTS - FREE TEXT/NARRATIVE: Patient presents to the ED via personal vehicle with daughter and son for complaints of dental pain and cough. The patient states her dental pain is present in her bilateral upper molars, and began about one week prior. She denies a dental visit in this time and states she has not been to the dentist in about 4 years. She has no difficulty with mastication or swallowing. She denies noticing purulent drainage from any teeth or gums. Per the patient she was exposed to her COVID-positive nephew last Tuesday08/13/20. She states her symptoms began on 08/16/20. She denies fever, shaking chills, chest pain/pressure, palpitations, sore throat, or ear pain/pressure/drainage. She has not taken any medications for either problem. Bilateral Upper Oral/Mouth Pain Score (Numeric/FACES): 8 - Related Data Allergies Allergy/AdvReac Type Severity Reaction Status Date / Time benzoyl peroxide Allergy Swelling Verified 08/20/20 13:10 Home Meds: Home Meds . 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 D/C from retained placenta. Musculoskeletal History: Reports: None Neurological History: Reports: None Psychiatric History: Reports: None Endocrine/Metabolic History: Reports: None Hematologic History: Reports: None Immunologic History: Reports: None Oncologic (Cancer) History: Reports: None Dermatologic History: Reports: None - Infectious Disease History Infectious Disease History: Reports: Chicken Pox - Past Surgical History Head Surgeries/Procedures: Reports: None GI Surgical History: Reports: Cholecystectomy Female Surgical History: Reports: Section, D&C, Tubal Ligation Social & Family History - Family History Family Medical History: Noncontributory HEENT: Reports: None Cardiac: Reports: None Respiratory: Reports: None GI: Reports: None - Tobacco Use Tobacco Use Status *Q: Current Every Day Tobacco User Years of Tobacco use: 14 Packs/Tins Daily: 1 - Caffeine Use Caffeine Use: Reports: Coffee - Recreational Drug Use Recreational Drug Use: No - Living Situation & Occupation Living situation: Reports: with Family ED ROS ENT - Review of Systems Review Of Systems: Comprehensive ROS is negative, except as noted in HPI. ED EXAM, ENT - Physical Exam Exam: See Below Exam Limited By: No Limitations General Appearance: Alert, WD/WN, No Apparent Distress Eye Exam: Bilateral Eye: EOMI, Normal Inspection, PERRL Ears: Normal External Exam, Normal Canal, Hearing Grossly Normal, Normal TMs Nose: Clear Rhinorrhea, Nasal Swelling, Nasal Tenderness, Injected Turbinates Mouth/Throat: Dental Pain, Dental Tenderness, Gum Swelling, Other (Erythema to left upper molar; No open abscesses). No: Dental Abcess, Lip Swelling, Lip Ulcers, Throat Swelling, Tongue Swelling, Tonsillar Erythema, Tonsillar Exudates, Tonsillar Swelling Head: Atraumatic, Normocephalic Neck: Supple, Non-Tender, Lymphadenopathy (L), Lymphadenopathy (R) Respiratory/Chest: No Respiratory Distress, Lungs Clear, Normal Breath Sounds, No Accessory Muscle Use, Chest Non-Tender Cardiovascular: Normal Peripheral Pulses, Regular Rate, Rhythm, No Edema, No Gallop, No Murmur Neurological: Alert, Oriented Skin: Warm, Dry, Intact, Normal Color, No Rash. No: Ecchymosis, Erythema, Petechiae, Rash Course - Vital Signs Last Recorded V/S: Last Vital Signs Temp Pulse Resp BP Pulse Ox 98 08/20/20 12:12 - Re-Assessments/Exams Free Text/Narrative Re-Assessment/Exam: 08/20/20 14:15 State COVID sent. Will treat possible dental abscess - patient instructed to visit dentist LUCIA. Departure - Departure Time of Disposition: 14:30 Disposition: DC/Tfer to Hospice - Home 51 Clinical Impression: Pain due to dental caries, URI with cough and congestion, Exposure to COVID-19 virus, Dental caries - Discharge Information *PRESCRIPTION DRUG MONITORING PROGRAM REVIEWED*: Not Applicable *COPY OF PRESCRIPTION DRUG MONITORING REPORT IN PATIENT GRADY: Not Applicable Additional Instructions: Rx: Clindamycin Follow up with dentistLUCIA. Follow instructions[facility]. Sepsis Event Note (ED) - Evaluation Sepsis Screening Result: No Definite Risk - Focused Exam Vital Signs: Vital Signs Pulse Ox 08/20/20 12:12 98
== END 2020-08-20 14:44 | disposition hospice, home (50) ==
LOC: DL.ED 11:46
DX: K02.9 Dental caries, unspecified (principal); K08.89 Other specified disorders of teeth and supporting structures; J06.9 Acute upper respiratory infection, unspecified; F17.210 Nicotine dependence, cigarettes, uncomplicated; J45.909 Unspecified asthma, uncomplicated; Z20.828 Contact with and (suspected) exposure to other viral communicable diseases; Z88.3 Allergy status to other anti-infective agents
CPT/HCPCS: 99283

== ENCOUNTER 2020-08-31 10:29 | Emergency (ER) | payer MEDICAID ==
[2020-08-31 10:40] VITALS: BP 111/61; PULSE 93
[2020-08-31] MEDS ORDERED: Sodium Chloride 0.9% 10 ML Syringe FLUSH PRN (10:52)
[2020-08-31] MEDS ORDERED: Ketorolac 30 MG/ML SDV IVPUSH ONE (10:54)
--- NOTE | 2020-08-31 11:02 | EDM.PDOC ---
ED HPI GENERAL MEDICAL PROBLEM - General Chief Complaint: Chest Pain Stated Complaint: ambulance Time Seen by Provider: 08/31/20 10:58 Source of Information: Reports: Patient - History of Present Illness INITIAL COMMENTS - FREE TEXT/NARRATIVE: Patient is here for right sided chest pain. It started last night while she was smoking weed and became worse this morning. She notes the pain is sharp and does not radiate. She denies nausea or dyspepsia. She does have some shortness of breath from not breathing well due to the pain. She has had this pain before and has been worked up, but doesn't remember what she was diagnosed with. No fevers or chills. No known exposure to COVID. Onset Date: 08/30/20 Duration: Getting Worse Quality: Reports: Sharp Improves with: Reports: None Worsens with: Reports: Breathing, Movement Right Upper Chest Pain Score (Numeric/FACES): 5 - Related Data Allergies Allergy/AdvReac Type Severity Reaction Status Date / Time benzoyl peroxide Allergy Swelling Verified 08/31/20 10:37 Home Meds: Home Meds Albuterol Sulfate [Albuterol Sulfate Hfa] 2 puff INH ASDIRECTED PRN 08/31/20 [History] Past Medical History HEENT History: Reports: Impaired Vision Cardiovascular History: Reports: None Respiratory History: Reports: Asthma Gastrointestinal History: Reports: Cholelithiasis Genitourinary History: Reports: None 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 D/C from retained placenta. Musculoskeletal History: Reports: None Neurological History: Reports: None Psychiatric History: Reports: None Endocrine/Metabolic History: Reports: None Hematologic History: Reports: None Immunologic History: Reports: None Oncologic (Cancer) History: Reports: None Dermatologic History: Reports: None - Infectious Disease History Infectious Disease History: Reports: Chicken Pox - Past Surgical History Head Surgeries/Procedures: Reports: None GI Surgical History: Reports: Cholecystectomy Female Surgical History: Reports: Section, D&C, Tubal Ligation Social & Family History - Family History Family Medical History: Noncontributory HEENT: Reports: None Cardiac: Reports: None Respiratory: Reports: None GI: Reports: None - Caffeine Use Caffeine Use: Reports: Coffee - Living Situation & Occupation Living situation: Reports: with Family ED ROS GENERAL - Review of Systems Review Of Systems: Comprehensive ROS is negative, except as noted in HPI. ED EXAM, GENERAL - Physical Exam Exam: See Below Exam Limited By: No Limitations General Appearance: Alert, WD/WN, No Apparent Distress Eye Exam: Bilateral Eye: Normal Inspection Throat/Mouth: Normal Voice, No Airway Compromise Head: Atraumatic, Normocephalic Respiratory/Chest: No Respiratory Distress, Lungs Clear, Normal Breath Sounds, No Accessory Muscle Use Cardiovascular: Regular Rate, Rhythm, No Edema, No Murmur, Other (tenderness to palption of right chest wall) GI/Abdominal: Soft, Non-Tender, No Distention Back Exam: Normal Inspection, Full Range of Motion Extremities: Normal Inspection, Normal Range of Motion Neurological: Alert, Oriented, Normal Cognition, Normal Gait Psychiatric: Normal Affect, Normal Mood Skin Exam: Warm, Dry, Intact, Normal Color, No Rash Lymphatic: No Adenopathy Course - Vital Signs Last Recorded V/S: Last Vital Signs Temp 98.8 F 08/31/20 10:39 Pulse 93 08/31/20 10:39 Resp 18 08/31/20 10:39 BP 111/61 08/31/20 10:39 Pulse Ox 100 08/31/20 10:39 - Orders/Labs/Meds Orders: Active Orders 24 hr Category Date Time Status EKG Documentation Completion [RC] STAT Care 08/31/20 10:52 Ordered Peripheral IV Care [RC] . DIRECTED Care 08/31/20 10:54 Ordered DRUG SCREEN, URINE [URCHEM] Stat Lab 08/31/20 10:53 Ordered Sodium Chloride 0.9% [Saline Flush] Med 08/31/20 10:52 Ordered 10 ml FLUSH ASDIRECTED PRN Peripheral IV Insertion Adult [OM.PC] Stat Oth 08/31/20 10:53 Ordered Medication Orders Sodium Chloride (Saline Flush) 10 ml FLUSH ASDIRECTED PRN PRN Reason: Keep Vein Open Last Admin: 08/31/20 11:15 Dose: 10 ml Documented by: RIAN Labs: Laboratory Tests 08/31/20 08/31/20 Range/Units 11:04 11:04 WBC 4.9 L (5.0-10.0) 10^3/uL RBC 4.62 (4.2-5.4) 10^6/uL Hgb 10.2 L D (12.0-16.0) g/dL Hct 32.2 L (37.0-47.0) % MCV 69.7 L D (80-100) fL MCH 22.1 L (27.0-34.0) pg MCHC 31.7 L (33.0-35.0) g/dL Plt Count 302 D (150-450) 10^3/uL Neut % (Auto) 47.1 (42.2-75.2) % Lymph % (Auto) 41.4 (20.5-50.1) % Person % (Auto) 7.1 (2-8) % Eos % (Auto) 3.4 H (1.0-3.0) % Baso % (Auto) 1.0 (0.0-1.0) % Sodium 137 (136-145) mmol/L Potassium 3.6 (3.5-5.1) mmol/L Chloride 104 (98-107) mmol/L Carbon Dioxide 24 (21-32) mmol/L Anion Gap 12.6 (7-13) mEq/L BUN 8 (7-18) mg/dL Creatinine 0.71 (0.55-1.02) mg/dL Est Cr Clr Drug Dosing 100.96 mL/min Estimated GFR (MDRD) > 60 BUN/Creatinine Ratio 11.3 (No establ ref range) Glucose 68 L (74-99) mg/dL Calcium 7.9 L (8.5-10.1) mg/dL Total Bilirubin 0.3 (0.2-1.0) mg/dL AST 16 (15-37) U/L ALT 29 (14-59) U/L Alkaline Phosphatase 80 (46-116) U/L Troponin I < 0.017 (0.000-0.056) ng/mL Total Protein 6.9 (6.4-8.2) g/dL Albumin 3.4 (3.4-5.0) g/dL Globulin 3.5 Albumin/Globulin Ratio 1.0 Meds: Medications Generic Name Dose Route Start Last Admin Trade Name Freq PRN Reason Stop Dose Admin Sodium Chloride 10 ml 08/31/20 10:52 08/31/20 11:15 Saline Flush FLUSH 10 ml ASDIRECTED PRN Administration Keep Vein Open Discontinued Medications Generic Name Dose Route Start Last Admin Trade Name Freq PRN Reason Stop Dose Admin Ketorolac Tromethamine 30 mg 08/31/20 10:54 08/31/20 11:19 Toradol IVPUSH 08/31/20 10:55 30 mg ONETIME ONE Administration - Re-Assessments/Exams Free Text/Narrative Re-Assessment/Exam: pain improved with toradol. labs and cxr reviewed with pt. 08/31/20 11:40 Departure - Departure Time of Disposition: 11:41 Disposition: Home, Self-Care 01 Condition: Good Clinical Impression: Chest wall pain Instructions: Nonspecific Chest Pain, Adult, [id number] Forms: ED Department Discharge Additional Instructions: Rest, ice and/or heat, and over the counter medications for pain relief Follow up with PCP in 3-5 days Sepsis Event Note (ED) - Evaluation Sepsis Screening Result: No Definite Risk - Focused Exam Vital Signs: Vital Signs Temp Pulse Resp BP Pulse Ox 08/31/20 10:39 98.8 F 93 18 111/61 100 - My Orders Last 24 Hours: My Active Orders 08/31/20 10:52 EKG Documentation Completion [RC] STAT Sodium Chloride 0.9% [Saline Flush] 10 ml FLUSH ASDIRECTED PRN 08/31/20 10:53 DRUG SCREEN, URINE [URCHEM] Stat Peripheral IV Insertion Adult [OM.PC] Stat 08/31/20 10:54 Peripheral IV Care [RC] . DIRECTED - Assessment/Plan Last 24 Hours: My Active Orders 08/31/20 10:52 EKG Documentation Completion [RC] STAT Sodium Chloride 0.9% [Saline Flush] 10 ml FLUSH ASDIRECTED PRN 08/31/20 10:53 DRUG SCREEN, URINE [URCHEM] Stat Peripheral IV Insertion Adult [OM.PC] Stat 08/31/20 10:54 Peripheral IV Care [RC] . DIRECTED
--- NOTE | 2020-08-31 11:18 | CR ---
PROCEDURE INFORMATION: Exam: XR Chest, 1 View Exam date and time: 08/31/2020 10:59 AM Age: 30 years old Clinical indication: Other: Chest pain TECHNIQUE: Imaging protocol: XR of the chest Views: 1 view. COMPARISON: No relevant prior studies available. FINDINGS: Lungs: The lungs are normally expanded and clear. Pleural space: Normal. Heart/Mediastinum: Normal heart and cardiomediastinal silhouette. Vasculature: Normal pulmonary vessel caliber. Normal aorta. Bones/joints: The bones are intact. IMPRESSION: No acute disease or suspicious finding.
[2020-08-31 11:30] LABS: ANION GAP 12.6 mEq/L (7-13); CHLORIDE,CL 104 mmol/L (98-107); SODIUM,NA 137 mmol/L (136-145)
== END 2020-08-31 12:02 | disposition home or self-care (01) ==
LOC: DL.ED 10:29
DX: R07.89 Other chest pain (principal); R06.02 Shortness of breath; J45.909 Unspecified asthma, uncomplicated; Z88.8 Allergy status to other drugs, medicaments and biological substances; Z90.49 Acquired absence of other specified parts of digestive tract; Z98.51 Tubal ligation status
CPT/HCPCS: 36415; 71045; 80053; 84484; 85025; 93005; 96374; 99285; J1885; 99283

== ENCOUNTER 2020-11-15 11:11 | Emergency (ER) | payer MEDICAID ==
[2020-11-15 11:24] VITALS: PULSE 91
--- NOTE | 2020-11-15 12:05 | EDM.PDOC ---
Scribed by Reva Will 11/15/20 1148 for Lucian Quiroz MD ED HPI GENERAL MEDICAL PROBLEM - General Chief Complaint: Skin Complaint Stated Complaint: SCABIES Time Seen by Provider: 11/15/20 11:24 Source of Information: Reports: Patient, RN, RN Notes Reviewed History Limitations: Reports: No Limitations - History of Present Illness INITIAL COMMENTS - FREE TEXT/NARRATIVE: Patient presents to ED by POV. Patient states that 3 days ago she had another dog at her house with her dog. She states that 2 days ago she began to get a rash on her right neck. Patient states that she thinks the other dog gave her dog mange and her dog gave it to her. She has not seen her PCP for this issue. Patient has red rash to the right side of neck and that it is very itchy. She has not used any medication to the rash to help. Onset: Gradual Duration: Getting Worse Location: Reports: Neck Quality: Reports: Other (itchy) Improves with: Reports: None Worsens with: Reports: None Associated Symptoms: Reports: No Other Symptoms - Related Data Allergies Allergy/AdvReac Type Severity Reaction Status Date / Time benzoyl peroxide Allergy Swelling Verified 11/15/20 11:23 Home Meds: Home Meds Albuterol Sulfate [Albuterol Sulfate Hfa] 2 puff INH ASDIRECTED PRN 08/31/20 [History] Past Medical History HEENT History: Reports: Impaired Vision Cardiovascular History: Reports: None Respiratory History: Reports: Asthma Gastrointestinal History: Reports: Cholelithiasis Genitourinary History: Reports: None 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 D/C from retained placenta. Musculoskeletal History: Reports: None Neurological History: Reports: None Psychiatric History: Reports: None Endocrine/Metabolic History: Reports: None Hematologic History: Reports: None Immunologic History: Reports: None Oncologic (Cancer) History: Reports: None Dermatologic History: Reports: None - Infectious Disease History Infectious Disease History: Reports: Chicken Pox - Past Surgical History Head Surgeries/Procedures: Reports: None GI Surgical History: Reports: Cholecystectomy Female Surgical History: Reports: Section, D&C, Tubal Ligation Social & Family History - Family History Family Medical History: No Pertinent Family History HEENT: Reports: None Cardiac: Reports: None Respiratory: Reports: None GI: Reports: None - Caffeine Use Caffeine Use: Reports: Coffee - Living Situation & Occupation Living situation: Reports: with Family ED ROS GENERAL - Review of Systems Review Of Systems: Comprehensive ROS is negative, except as noted in HPI. ED EXAM, SKIN/RASH Exam: See Below Exam Limited By: No Limitations General Appearance: Alert, WD/WN, No Apparent Distress Ears: Normal Canal Nose: Normal Inspection, Normal Mucosa, No Blood Throat/Mouth: Normal Inspection, Normal Lips, Normal Teeth, Normal Gums, Normal Oropharynx, Normal Voice, No Airway Compromise Head: Atraumatic, Normocephalic Neck: Supple, Non-Tender, Other (vesicular rash at the right posterior neck. Confined to the right of midline. ) Respiratory/Chest: No Respiratory Distress Cardiovascular: Normal Peripheral Pulses Psychiatric: Normal Affect, Normal Mood Skin: Warm, Dry, Other (see above) Course - Vital Signs Last Recorded V/S: Last Vital Signs Temp 98.8 F 11/15/20 11:16 Pulse 91 11/15/20 11:16 Resp 18 11/15/20 11:16 BP Pulse Ox 99 11/15/20 11:16 Departure - Departure Time of Disposition: 11:46 Disposition: Home, Self-Care 01 Condition: Good Clinical Impression: Varicella zoster - Discharge Information *PRESCRIPTION DRUG MONITORING PROGRAM REVIEWED*: Not Applicable *COPY OF PRESCRIPTION DRUG MONITORING REPORT IN PATIENT GRADY: Not Applicable Instructions: Rash, Adult, Shingles, [id number] Referrals: Wisam Underwood MD [Primary Care Provider] - Forms: ED Department Discharge Additional Instructions: RX: Valtrex RX: Elimite Wash bedding and pillow covers. Do not wear necklace. Follow up in clinic if needed. Sepsis Event Note (ED) - Evaluation Sepsis Screening Result: No Definite Risk - Focused Exam Vital Signs: Vital Signs Temp Pulse Resp Pulse Ox 11/15/20 11:16 98.8 F 91 18 99 I have read and agree with the documentation that has been completed regarding this visit. By signing this record, I attest that the documentation was completed in my physical presence and is an accurate record of the encounter.
== END 2020-11-15 11:54 | disposition home or self-care (01) ==
LOC: DL.ED 11:11
DX: B01.9 Varicella without complication (principal); J45.909 Unspecified asthma, uncomplicated; Z91.048 Other nonmedicinal substance allergy status
CPT/HCPCS: 99282; 99283

== ENCOUNTER 2021-03-20 15:21 | Emergency (ER) | payer MEDICAID ==
[2021-03-20] MEDS ORDERED: Naloxone 2 MG/2 ML Syringe IVPUSH ONE (15:25)
[2021-03-20] MEDS ORDERED: Ondansetron 4 MG/2 ML SDV IVPUSH ONE ×2 (15:27→20:10)
[2021-03-20 15:49] VITALS: BP 116/79; PULSE 78
[2021-03-20 16:12] LABS: ANION GAP 15.3 mEq/L (7-13); CHLORIDE,CL 104 mmol/L (98-107); SODIUM,NA 138 mmol/L (136-145)
[2021-03-20 16:25] LABS: ACETAMINOPHEN 0 ug/mL (10-30 (Therapeutic))
--- NOTE | 2021-03-20 16:50 | CT ---
PROCEDURE INFORMATION: Exam: CT Head Without Contrast Exam date and time: 03/20/2021 4:28 PM Age: 30 years old Clinical indication: Other: Pain; Additional info: Overdose, headache TECHNIQUE: Imaging protocol: Computed tomography of the head without contrast. Radiation optimization: All CT scans at this facility use at least one of these dose optimization techniques: automated exposure control; mA and/or kV adjustment per patient size (includes targeted exams where dose is matched to clinical indication); or iterative reconstruction. COMPARISON: No relevant prior studies available. FINDINGS: Brain: Normal. No hemorrhage. Unremarkable white matter. No mass effect. Cerebral ventricles: No ventriculomegaly. Bones/joints: Unremarkable. No acute fracture. Paranasal sinuses: Visualized sinuses are unremarkable. No fluid levels. Mastoid air cells: Visualized mastoid air cells are well aerated. Soft tissues: Unremarkable. IMPRESSION: No acute intracranial abnormality.
--- NOTE | 2021-03-20 16:52 | CT ---
PROCEDURE INFORMATION: Exam: CT Cervical Spine Without Contrast Exam date and time: 03/20/2021 4:28 PM Age: 30 years old Clinical indication: Other: Pain; Additional info: Overdose, headache TECHNIQUE: Imaging protocol: Computed tomography images of the cervical spine without contrast. Radiation optimization: All CT scans at this facility use at least one of these dose optimization techniques: automated exposure control; mA and/or kV adjustment per patient size (includes targeted exams where dose is matched to clinical indication); or iterative reconstruction. COMPARISON: No relevant prior studies available. FINDINGS: Bones/joints: No acute fracture. Normal alignment. Discs/Spinal canal/Neural foramina: No significant disc protrusion. No severe spinal canal stenosis. No significant neural foraminal narrowing. Lungs: Lung apices are normal. Soft tissues: Unremarkable. IMPRESSION: No acute findings.
--- NOTE | 2021-03-20 17:05 | EDM.PDOCBH ---
<Julian Goodman M - Last Filed: 03/20/21 17:19> ED HPI GENERAL MEDICAL PROBLEM - General Chief Complaint: Drug or Alcohol Abuse Stated Complaint: BY AMBULANCE Time Seen by Provider: 03/20/21 16:50 Source of Information: Reports: Patient History Limitations: Reports: No Limitations - History of Present Illness INITIAL COMMENTS - FREE TEXT/NARRATIVE: This 30 yo female patient was brought to the ED by [facility] due to a possible overdose and fall. The patient reports she has been having left shoulder pain and took a pill that was small, round, blue with an M and 30 on the pill. The patient reports she believes the pill was Percocet. The patient reports about 10 minutes after taking the pill, she woke up with a bunch of people around her. EMS reports they gave the patient 1 mg of Narcan upon their contact with the patient. After the Narcan, the patient started to respond to EMS. Upon arrival in the ED, the patient was not responding unless painful stimuli was used. The patient was given an additional dose of Narcan (0.4 mg). The patient remained sleepy, but responded appropriately to questioning. The patient reports she currently has a headache. Onset: Today Duration: Minutes:, Improving Location: Reports: Generalized Quality: Reports: Ache Severity: Moderate Improves with: Reports: None Worsens with: Reports: None Context: Reports: Other Associated Symptoms: Reports: Confusion Head Pain Score (Numeric/FACES): 8 - Related Data Allergies Allergy/AdvReac Type Severity Reaction Status Date / Time benzoyl peroxide Allergy Swelling Verified 11/15/20 11:23 Home Meds: Home Meds Albuterol Sulfate [Albuterol Sulfate Hfa] 2 puff INH ASDIRECTED PRN 08/31/20 [History] Past Medical History HEENT History: Reports: Impaired Vision Cardiovascular History: Reports: None Respiratory History: Reports: Asthma Gastrointestinal History: Reports: Cholelithiasis Genitourinary History: Reports: None [employer] History: Reports: Other [employer] History: Twin gestation. D/C from retained placenta. Musculoskeletal History: Reports: None Neurological History: Reports: None Psychiatric History: Reports: None Endocrine/Metabolic History: Reports: None Hematologic History: Reports: None Immunologic History: Reports: None Oncologic (Cancer) History: Reports: None Dermatologic History: Reports: None Other Dermatologic History: numerous tattoos - Infectious Disease History Infectious Disease History: Reports: Chicken Pox - Past Surgical History Head Surgeries/Procedures: Reports: None GI Surgical History: Reports: Cholecystectomy Female Surgical History: Reports: Section, D&C, Tubal Ligation Social & Family History - Family History Family Medical History: No Pertinent Family History HEENT: Reports: None Cardiac: Reports: None Respiratory: Reports: None GI: Reports: None - Tobacco Use Tobacco Use Status *Q: Current Every Day Tobacco User Years of Tobacco use: 14 Packs/Tins Daily: 1 - Caffeine Use Caffeine Use: Reports: Coffee - Recreational Drug Use Recreational Drug Use: Yes Drug Use in Last 12 Months: Yes Recreational Drug Type: Reports: Marijuana/Hashish - Living Situation & Occupation Living situation: Reports: with Family ED ROS GENERAL - Review of Systems Review Of Systems: Comprehensive ROS is negative, except as noted in HPI. ED EXAM, BEHAVIORAL HEALTH - Physical Exam Exam: See Below Exam Limited By: No Limitations General Appearance: Alert, WD/WN, Mild Distress Eye Exam: Bilateral Eye: EOMI, Normal Inspection, PERRL (sluggish, but reactive) Ears: Normal External Exam, Normal Canal, Hearing Grossly Normal, Normal TMs Nose: Normal Inspection, Normal Mucosa, No Blood Throat/Mouth: Normal Lips, Normal Teeth, Normal Gums, Normal Oropharynx, Normal Voice, No Airway Compromise Head: Atraumatic, Normocephalic Neck: Normal Inspection, Supple, Non-Tender, Full Range of Motion Respiratory/Chest: No Respiratory Distress, Lungs Clear, Normal Breath Sounds, No Accessory Muscle Use, Chest Non-Tender Cardiovascular: Normal Peripheral Pulses, Regular Rate, Rhythm, No Edema, No Gallop, No JVD, No Murmur, No Rub (Female) Exam: Deferred Rectal (Female) Exam: Deferred Back Exam: Normal Inspection, Full Range of Motion, NT Extremities: Normal Inspection, Normal Range of Motion, Non-Tender, Normal Capillary Refill, No Pedal Edema Neurological: Alert, Normal Mood/Affect, CN II-XII Intact, Normal Cognition, N ormal Gait, Normal Reflexes, No Motor/Sensory Deficits, Oriented x 3 Psychiatric: Alert, Normal Affect, Normal Cognition, Normal Mood, Oriented Skin Exam: Warm, Dry, Intact, Normal color, No rash #1 Interpretation EKG Date: 03/20/21 Time: 15:51 Rhythm: NSR Rate (Beats/Min): 78 [place]: Normal P-Wave: Present QRS: Normal ST-T: Normal QT: Normal Comparison: NA - No Prior EKG COURSE, BEHAVIORAL HEALTH COMP - Course Re-Assessment/Re-Exam: The patient was advised of the lab and CT results. The patient was also advised that we would like to keep her here in the ED until 1930 tonight to make sure the medication she took does not last longer than the narcan given to her upon arrival in the ED. Departure - Departure Disposition: Home, Self-Care 01 Clinical Impression: Drug abuse, Marijuana abuse - Discharge Information Instructions: Substance Use Disorder Forms: ED Department Discharge Additional Instructions: Encourage patient to continue pushing fluids and rest. Follow-up with PCP in 3 days. Return to the ER if symptoms return or worsen. Sepsis Event Note (ED) - Evaluation Sepsis Screening Result: No Definite Risk <Porter Romo - Last Filed: 03/20/21 20:06> COURSE, BEHAVIORAL HEALTH COMP - Course Vital Signs: Last Vital Signs Temp 97.3 F 03/20/21 15:45 Pulse 78 03/20/21 15:45 Resp 15 03/20/21 15:45 BP 116/79 03/20/21 15:45 Pulse Ox 100 03/20/21 15:45 Orders, Labs, Meds: Active Orders 24 hr Category Date Time Status EKG Documentation Completion [RC] STAT Care 03/20/21 15:24 Active Laboratory Tests 03/20/21 03/20/21 03/20/21 Range/Units 15:35 15:35 15:35 WBC 9.8 (5.0-10.0) 10^3/uL RBC 5.09 (4.2-5.4) 10^6/uL Hgb 14.4 D (12.0-16.0) g/dL Hct 41.8 (37.0-47.0) % MCV 82.1 D (80-100) fL MCH 28.3 (27.0-34.0) pg MCHC 34.4 (33.0-35.0) g/dL Plt Count 232 (150-450) 10^3/uL Neut % (Auto) 61.9 (42.2-75.2) % Lymph % (Auto) 29.1 (20.5-50.1) % Ogle % (Auto) 6.8 (2-8) % Eos % (Auto) 1.6 (1.0-3.0) % Baso % (Auto) 0.6 (0.0-1.0) % Sodium 138 (136-145) mmol/L Potassium 4.3 (3.5-5.1) mmol/L Chloride 104 (98-107) mmol/L Carbon Dioxide 23 (21-32) mmol/L Anion Gap 15.3 H (7-13) mEq/L BUN 11 (7-18) mg/dL Creatinine 0.75 (0.55-1.02) mg/dL Est Cr Clr Drug Dosing 111.65 mL/min Estimated GFR (MDRD) > 60 BUN/Creatinine Ratio 14.7 (No establ ref range) Glucose 103 H (70-99) mg/dL Calcium 8.8 (8.5-10.1) mg/dL Magnesium 2.0 (1.8-2.4) mg/dL Total Bilirubin 0.6 (0.2-1.0) mg/dL AST 43 H (15-37) U/L ALT 35 (14-59) U/L Alkaline Phosphatase 68 (46-116) U/L Troponin I < 0.017 (0.000-0.056) ng/mL Total Protein 7.1 (6.4-8.2) g/dL Albumin 3.9 (3.4-5.0) g/dL Globulin 3.2 Albumin/Globulin Ratio 1.2 Urine Color (YELLOW) Urine Appearance (CLEAR) Urine pH (5.0-9.0) Ur Specific [place] (1.005-1.030) Urine Protein (NEGATIVE) Urine Glucose (UA) (NEGATIVE) Urine Ketones (NEGATIVE) Urine Occult Blood (NEGATIVE) Urine Nitrite (NEGATIVE) Urine Bilirubin (NEGATIVE) Urine Urobilinogen (0.2-1.0) mg/dL Ur Leukocyte Esterase (NEGATIVE) U Hyaline Cast (Auto) Urine RBC /HPF Urine WBC (0-5/HPF) /HPF Ur Epithelial Cells (NOT SEEN) /HPF Urine Bacteria (0-FEW/HPF) /HPF Urine Mucus (NOT SEEN) /LPF Urine HCG, Qual Salicylates 6.5 (2.8-20(Therapeutic)) mg/dL Urine Opiates Screen (NEGATIVE) Ur Oxycodone Screen (NEGATIVE) Urine Methadone Screen (NEGATIVE) Acetaminophen 0 L (10-30 (Therapeutic)) ug/mL Ur Barbiturates Screen (NEGATIVE) U Tricyclic Antidepress (NEGATIVE) Ur Phencyclidine Scrn (NEGATIVE) Ur Amphetamine Screen (NEGATIVE) U Methamphetamines Scrn (NEGATIVE) Urine MDMA Screen (NEGATIVE) U Benzodiazepines Scrn (NEGATIVE) Urine Cocaine Screen (NEGATIVE) U Marijuana (THC) Screen (NEGATIVE) Ethyl Alcohol < 3 (0) mg/dL 03/20/21 03/20/21 03/20/21 Range/Units 16:05 16:05 16:05 WBC (5.0-10.0) 10^3/uL RBC (4.2-5.4) 10^6/uL Hgb (12.0-16.0) g/dL Hct (37.0-47.0) % MCV (80-100) fL MCH (27.0-34.0) pg MCHC (33.0-35.0) g/dL Plt Count (150-450) 10^3/uL Neut % (Auto) (42.2-75.2) % Lymph % (Auto) (20.5-50.1) % Ogle % (Auto) (2-8) % Eos % (Auto) (1.0-3.0) % Baso % (Auto) (0.0-1.0) % Sodium (136-145) mmol/L Potassium (3.5-5.1) mmol/L Chloride (98-107) mmol/L Carbon Dioxide (21-32) mmol/L Anion Gap (7-13) mEq/L BUN (7-18) mg/dL Creatinine (0.55-1.02) mg/dL Est Cr Clr Drug Dosing mL/min Estimated GFR (MDRD) BUN/Creatinine Ratio (No establ ref range) Glucose (70-99) mg/dL Calcium (8.5-10.1) mg/dL Magnesium (1.8-2.4) mg/dL Total Bilirubin (0.2-1.0) mg/dL AST (15-37) U/L ALT (14-59) U/L Alkaline Phosphatase (46-116) U/L Troponin I (0.000-0.056) ng/mL Total Protein (6.4-8.2) g/dL Albumin (3.4-5.0) g/dL Globulin Albumin/Globulin Ratio Urine Color Dark yellow (YELLOW) Urine Appearance Cloudy (CLEAR) Urine pH 5.5 (5.0-9.0) Ur Specific [place] >= 1.030 (1.005-1.030) Urine Protein 30 H (NEGATIVE) Urine Glucose (UA) Negative (NEGATIVE) Urine Ketones Trace H (NEGATIVE) Urine Occult Blood Trace-intact H (NEGATIVE) Urine Nitrite Negative (NEGATIVE) Urine Bilirubin Negative (NEGATIVE) Urine Urobilinogen 0.2 (0.2-1.0) mg/dL Ur Leukocyte Esterase Negative (NEGATIVE) U Hyaline Cast (Auto) Rare Urine RBC 0-5 /HPF Urine WBC 0-5 (0-5/HPF) /HPF Ur Epithelial Cells Moderate H (NOT SEEN) /HPF Urine Bacteria Few (0-FEW/HPF) /HPF Urine Mucus Many H (NOT SEEN) /LPF Urine HCG, Qual Negative Salicylates (2.8-20(Therapeutic)) mg/dL Urine Opiates Screen Negative (NEGATIVE) Ur Oxycodone Screen Negative (NEGATIVE) Urine Methadone Screen Negative (NEGATIVE) Acetaminophen (10-30 (Therapeutic)) ug/mL Ur Barbiturates Screen Negative (NEGATIVE) U Tricyclic Antidepress Negative (NEGATIVE) Ur Phencyclidine Scrn Negative (NEGATIVE) Ur Amphetamine Screen Negative (NEGATIVE) U Methamphetamines Scrn Negative (NEGATIVE) Urine MDMA Screen Negative (NEGATIVE) U Benzodiazepines Scrn Negative (NEGATIVE) Urine Cocaine Screen Negative (NEGATIVE) U Marijuana (THC) Screen Positive H (NEGATIVE) Ethyl Alcohol (0) mg/dL Medications Discontinued Medications Generic Name Dose Route Start Last Admin Trade Name Selena PRN Reason Stop Dose Admin Acetaminophen 650 mg 03/20/21 17:09 03/20/21 19:18 Acetaminophen 325 Mg Tab PO 03/20/21 17:10 650 mg NOW ONE Administration Sodium Chloride 1,000 mls @ 999 mls/hr 03/20/21 17:15 03/20/21 15:35 Normal Saline IV 03/20/21 18:15 999 mls/hr .BOLUS ONE Administration Naloxone HCl 0.4 mg 03/20/21 15:25 03/20/21 15:37 Naloxone 2 Mg/2 Ml Syringe IVPUSH 03/20/21 15:26 0.4 mg ONETIME ONE Administration Ondansetron HCl 4 mg 03/20/21 15:27 03/20/21 15:40 Ondansetron 4 Mg/2 Ml Sdv IVPUSH 03/20/21 15:28 4 mg ONETIME ONE Administration Re-Assessment/Re-Exam: Patient was reassessed and given Tylenol for headache with relief. She denies any other symptoms at the time of discharge.. Departure - Departure Time of Disposition: 20:03 Condition: Good Sepsis Event Note (ED) - Focused Exam Vital Signs: Vital Signs Temp Pulse Resp BP Pulse Ox 03/20/21 15:45 97.3 F 78 15 116/79 100
[2021-03-20] MEDS ORDERED: Acetaminophen 325 MG Tab PO ONE (17:09)
[2021-03-20] MEDS ORDERED: Sodium Chloride 0.9% 1,000 ML IV ONE (17:15)
[2021-03-20] MEDS ORDERED: Ondansetron 4 MG/2 ML SDV ONE (20:20)
== END 2021-03-20 20:37 | disposition home or self-care (01) ==
LOC: DL.ED 15:21
DX: F12.10 Cannabis abuse, uncomplicated (principal); M25.512 Pain in left shoulder; Z88.8 Allergy status to other drugs, medicaments and biological substances; Z72.0 Tobacco use; W19.XXXA Unspecified fall, initial encounter
CPT/HCPCS: 36415; 70450; 72125; 80053; 80143; 80179; 80305-QW; 80307; 81001; 81025; 83735; 84484; 85025; 93005; 96374; 96375; 96376; 99283; 99285-25; A9270-GY; J2310; J2405; J7030

== ENCOUNTER 2023-10-22 09:20 | Emergency (ER) | payer MEDICAID ==
[2023-10-22] MEDS ORDERED: guaiFENesin 100 MG/5 ML Soln 5 ML UD Cup PO ONE (09:48)
[2023-10-22 10:30] LABS: CORONAVIRUS COVID-19 NAA NEGATIVE (NEGATIVE); INFLUENZA A NAA NEGATIVE (NEGATIVE); INFLUENZA B NAA NEGATIVE (NEGATIVE); RESPIRATORY SYNCYTIAL VIR NAA NEGATIVE (NEGATIVE)
[2023-10-22 10:32] VITALS: BP 121/71; PULSE 88
== END 2023-10-22 10:49 | disposition home or self-care (01) ==
LOC: DL.ED 09:20
DX: J06.9 Acute upper respiratory infection, unspecified (principal); R09.89 Other specified symptoms and signs involving the circulatory and respiratory systems; Z88.8 Allergy status to other drugs, medicaments and biological substances; Z79.899 Other long term (current) drug therapy; Z90.49 Acquired absence of other specified parts of digestive tract; Z20.822 Contact with and (suspected) exposure to COVID-19
CPT/HCPCS: 0241U; 99283; A9270

== ENCOUNTER 2024-03-10 19:13 | Emergency (ER) | payer SELFPAY ==
[2024-03-10] MEDS: Take Home: Doxycycline 100 MG Cap, 4 Cap Pack PO ONE (19:49)
[2024-03-10] MEDS: Take Home: Benzonatate 100 MG, 6 Cap Pack PO ONE (19:49)
[2024-03-10] MEDS: Dexamethasone 4 MG/ML SDV IM ONE (19:50)
[2024-03-10] MEDS: Codeine/guaiFENesin 10-100 MG/5 ML Syrup 5 ML Cup PO ONE (19:50)
[2024-03-10] MEDS: cefTRIAXone 1 GM, Lidocaine 1% 2.1 ML IM ONE (19:51)
[2024-03-10 20:01] VITALS: BP 102/78; PULSE 88
== END 2024-03-10 20:15 | disposition home or self-care (01) ==
LOC: DL.ED 19:13
DX: J18.9 Pneumonia, unspecified organism (principal); J45.909 Unspecified asthma, uncomplicated; Z79.899 Other long term (current) drug therapy; Z88.8 Allergy status to other drugs, medicaments and biological substances
CPT/HCPCS: 96372; 99283; 99284; A9270; J0696; J1100; J3490

== ENCOUNTER 2024-03-11 21:27 | Emergency (ER) | payer SELFPAY ==
[2024-03-12] MEDS: Ketorolac 30 MG/ML SDV IM ONE (01:05)
[2024-03-12 01:17] VITALS: BP 105/77; PULSE 73
== END 2024-03-12 01:21 | disposition home or self-care (01) ==
LOC: DL.ED 21:27
DX: J18.9 Pneumonia, unspecified organism (principal); J45.909 Unspecified asthma, uncomplicated; M79.10 Myalgia, unspecified site; Z88.8 Allergy status to other drugs, medicaments and biological substances; F17.210 Nicotine dependence, cigarettes, uncomplicated; Z79.51 Long term (current) use of inhaled steroids; Z90.49 Acquired absence of other specified parts of digestive tract
CPT/HCPCS: 96372; 99283; 99284; J1885

== ENCOUNTER 2024-08-13 18:41 | Emergency (ER) | payer MEDICAID ==
[2024-08-13 19:10] VITALS: BP 117/77; PULSE 89
== END 2024-08-13 21:06 | disposition home or self-care (01) ==
LOC: DL.ED 18:41
DX: M79.661 Pain in right lower leg (principal); F17.200 Nicotine dependence, unspecified, uncomplicated; Z90.49 Acquired absence of other specified parts of digestive tract; Z88.8 Allergy status to other drugs, medicaments and biological substances; X58.XXXA Exposure to other specified factors, initial encounter
CPT/HCPCS: 73590-RT; 99282; 99283

== ENCOUNTER 2025-05-09 15:08 | Emergency (ER) | payer MEDICAID ==
[2025-05-09 15:55] LABS: BASOPHILS PERCENT AUTO 0.2 % (0.0-1.0); EOSINOPHILS PERCENT AUTO 1.2 % (1.0-3.0); LYMPHOCYTES PERCENT AUTO 20.6 % (20.5-50.1); MONOCYTES PERCENT AUTO 9.4 % (2-8); NEUTROPHILS PERCENT AUTO 68.6 % (42.2-75.2); PLATELET COUNT,PLT 200 10^3/uL (150-450); RED BLOOD CELL COUNT 4.55 10^6/uL (4.2-5.4); WHITE BLOOD CELL COUNT,WBC 8.7 10^3/uL (5.0-10.0)
[2025-05-09] MEDS: fentaNYL 100 MCG/2 ML SDV IVPUSH ONE (16:18)
[2025-05-09 16:19] LABS: HCG QUALITATIVE,SERUM NEGATIVE (NEGATIVE)
[2025-05-09 16:20] LABS: A/G RATIO 0.72; ALANINE AMINOTRANSFERASE,ALT 13 U/L (14-59); ASPARTATE AMNIOTRANSFERASE,AST 8 U/L (15-37); BILIRUBIN TOTAL 0.4 mg/dL (0.2-1.0); BLOOD UREA NITROGEN,BUN 4 mg/dL (7-18); CARBON DIOXIDE,CO2 22 mmol/L (21-32); CHLORIDE,CL 104 mmol/L (98-107); CREATININE 1.04 mg/dL (0.55-1.02); EST CRCL DRUG DOSING (CG) 66.44 mL/min; ESTIMATED GFR 73 mL/min (>=60); GLUCOSE RANDOM 130 mg/dL (70-99); POTASSIUM,K 3.3 mmol/L (3.5-5.1); PROTEIN TOTAL,TP 7.4 g/dL (6.4-8.2); SODIUM,NA 138 mmol/L (136-145)
[2025-05-09] MEDS: Sodium Chloride 0.9% 10 ML Syringe FLUSH PRN (16:23)
[2025-05-09] MEDS ORDERED: Iopamidol 755 Mg/ML 100 ML Bottle IVPUSH ONE (17:10)
[2025-05-09] MEDS: Lactated Ringers 1,000 ML IV ONE (17:25)
[2025-05-09 18:11] LABS: GLUCOSE,URINE 250 (NEGATIVE); OCCULT BLOOD,URINE NEGATIVE (NEGATIVE)
[2025-05-09 18:27] LABS: APPEARANCE,URINE SLIGHTLY CLOUDY (CLEAR)
[2025-05-09 18:34] LABS: AMPHETAMINES,URINE NEGATIVE (NEGATIVE); BARBITURATES,URINE NEGATIVE (NEGATIVE); MDMA (ECSTASY), URINE NEGATIVE (NEGATIVE); METHAMPHETAMINES,URINE NEGATIVE (NEGATIVE); OPIATES,URINE NEGATIVE (NEGATIVE); OXYCODONE,URINE POSITIVE (NEGATIVE); PHENCYCLIDINE,URINE NEGATIVE (NEGATIVE); TCA,URINE NEGATIVE (NEGATIVE)
[2025-05-09 19:05] LABS: EPITHELIAL CELLS,URINE FEW /HPF (NOT SEEN)
[2025-05-09 19:24] VITALS: BP 102/64; PULSE 87
== END 2025-05-09 19:50 | disposition left against medical advice (07) ==
LOC: DL.ED 15:08
DX: R10.84 Generalized abdominal pain (principal); F10.920 Alcohol use, unspecified with intoxication, uncomplicated; J45.909 Unspecified asthma, uncomplicated; Z90.49 Acquired absence of other specified parts of digestive tract; Z88.8 Allergy status to other drugs, medicaments and biological substances; Z79.51 Long term (current) use of inhaled steroids; Z79.899 Other long term (current) drug therapy; Y90.9 Presence of alcohol in blood, level not specified
CPT/HCPCS: 36415; 74174; 80053; 80305; 81001; 84703; 85025; 87086; 96361; 96374; 99284; C1758; J3010; J7030; J7120

== ENCOUNTER 2025-05-18 12:17 | Emergency (ER) | payer MEDICAID ==
[2025-05-18 12:35] VITALS: BP 111/79; PULSE 99
== END 2025-05-18 12:45 | disposition home or self-care (01) ==
LOC: DL.ED 12:17
DX: K02.9 Dental caries, unspecified (principal); J45.909 Unspecified asthma, uncomplicated; Z88.8 Allergy status to other drugs, medicaments and biological substances; Z79.51 Long term (current) use of inhaled steroids; Z79.899 Other long term (current) drug therapy; Z90.49 Acquired absence of other specified parts of digestive tract
CPT/HCPCS: 99282

== ENCOUNTER 2025-08-10 17:58 | Emergency (ER) | payer MEDICAID ==
[2025-08-10 18:07] VITALS: BP 118/76; PULSE 84
[2025-08-10] MEDS ORDERED: Sodium Chloride 0.9% 10 ML Syringe FLUSH PRN (18:12)
[2025-08-10] MEDS: Dexamethasone 4 MG/ML SDV IVPUSH ONE (18:20)
[2025-08-10] MEDS: Take Home: Doxycycline 100 MG Cap, 4 Cap Pack PO ONE (18:37)
== END 2025-08-10 18:45 | disposition home or self-care (01) ==
LOC: DL.ED 17:58
DX: J45.21 Mild intermittent asthma with (acute) exacerbation (principal); J18.9 Pneumonia, unspecified organism; Z90.49 Acquired absence of other specified parts of digestive tract; Z88.8 Allergy status to other drugs, medicaments and biological substances; Z79.899 Other long term (current) drug therapy
CPT/HCPCS: 96374; 96375; 99283; 99284; A9270; J0696; J1100; J3535